=== PATIENT | male | born 1985 | race Two or more races ===

== ENCOUNTER 2020-05-07 00:11 | Emergency (ER) | payer SELFPAY ==
[~2020-05-07] VITALS: Ht 165.1 cm; Wt 61.2 kg
--- NOTE | 2020-05-07 00:15 | NUR ---
PT BIBRA FROM STREET PER RA, C/O ALCOHOL INTOXICATION. PT OPENS EYES TO PAINFUL STIMULI. VITAL SIGNS STABLE. RESPIRATIONS EVEN AND UNLABORED. NO ACUTE DISTRESS NOTED AT THIS TIME. PLACED ON MONITOR, WILL CONTINUE TO MONITOR
--- NOTE | 2020-05-07 00:15 | NUR ---
Note carmelone in EDM - 05/07/20 at 0213 by BEBE PT BIBRA FROM STREET C/O ABDOMINAL PAIN. 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 PT AWAKE, APPEARS INTOXICATED. VITAL SIGNS STABLE. RESPIRATIONS EVEN AND UNLABORED. NO ACUTE DISTRESS NOTED AT THIS TIME. PLACED ON MONITOR, WILL CONTINUE TO MONITOR
--- NOTE | 2020-05-07 00:55 | NUR ---
BRAND DEVELOPMENT MANAGER AT BEDSIDE FOR BLOOD DRAW
--- NOTE | 2020-05-07 01:00 | NUR ---
PT UNABLE TO PROVIDE URINE SAMPLE AT THIS TIME. MD GARY
--- NOTE | 2020-05-07 01:18 | NUR ---
PT BROUGHT BY RADIOLOGY TO CT
[2020-05-07 01:19] LABS: BASOPHILS % (AUTO) 0.5 % (0.0-2.0); EOSINOPHILS % (AUTO) 1.7 % (0.0-6.0); HEMATOCRIT 39 % (39-51); HEMOGLOBIN 13.1 g/dL (13.5-17.5); LYMPHOCYTES # (AUTO) 2.2 /CMM (0.8-4.8); LYMPHOCYTES % (AUTO) 33.1 % (20.0-44.0); MEAN CORPUSCULAR HGB CONC 34 g/dl (31.0-36.0); MEAN CORPUSCULAR VOLUME 88 fL (80-96); MONOCYTES # (AUTO) 0.6 /CMM (0.1-1.30); MONOCYTES % (AUTO) 8.4 % (2.0-12.0); NEUTROPHILS # (AUTO) 3.8 /CMM (1.8-8.9); NEUTROPHILS % (AUTO) 56.3 % (43.0-81.0); PLATELET COUNT (AUTO) 285 /CMM (150-450); RED BLOOD CELL COUNT(AUTO) 4.44 MIL/uL (4.5-6.0); WHITE BLOOD COUNT (AUTO) 6.7 K/uL (4.3-11.0)
--- NOTE | 2020-05-07 01:27 | NUR ---
PT RETURNED FROM CT
[2020-05-07 01:31] LABS: CALCIUM, SERUM 8.8 mg/dL (8.5-10.1); CARBON DIOXIDE 27 mmol/L (21-32); CHLORIDE 103 mmol/L (98-107); CREATININE 0.8 mg/dL (0.6-1.3); GLUCOSE 87 mg/dL (74-106); LIPASE 52 U/L (73-393); POTASSIUM 3.5 mmol/L (3.5-5.1); SODIUM SERUM 139 mmol/L (136-145); UREA NITROGEN, BLOOD 17 mg/dL (7-18)
[2020-05-07 01:32] LABS: ACETAMINOPHEN < 2 ug/ml (10-30)
[2020-05-07 01:38] LABS: ALANINE AMINOTRANSFERASE 21 U/L (12-78); ALBUMIN 3.8 g/dL (3.4-5.0); ALCOHOL, BLOOD < 3 mg/dL (0-0); ALKALINE PHOSPHATASE 96 U/L (46-116); ASPARTATE AMINOTRANSFERASE 20 U/L (15-37); BILIRUBIN,DIRECT 0.1 mg/dL (0.0-0.2); BILIRUBIN,TOTAL 0.4 mg/dL (0.2-1.0); TOTAL PROTEIN, SERUM 7.1 g/dL (6.4-8.2)
[2020-05-07] MEDS ORDERED: LIDOCAINE 2% JEL UROJET 10 ML MM ONE ×2 (02:05→02:30)
--- NOTE | 2020-05-07 02:10 | NUR ---
pt to ct.
[2020-05-07 03:29] LABS: BILIRUBIN,URINE NEGATIVE (NEGATIVE); COLOR,URINE YELLOW (YELLOW); LEUKOCYTE ESTERASE ,URINE NEGATIVE (NEGATIVE); NITRITE, URINE NEGATIVE (NEGATIVE); PROTEIN,URINE NEGATIVE (NEGATIVE); UGLUCOSE NEGATIVE (NEGATIVE); UROBILINOGEN,URINE 0.2 EU/dL (0.2)
--- NOTE | 2020-05-07 05:37 | NUR ---
pt appears to be more awake, denies si/hi. dr. jaimes aware
--- NOTE | 2020-05-07 08:55 | NUR ---
Patient given written and verbal discharge instructions. Patient verbalizes understanding of instructions. Patient is ambulatory with steady gait. Refuses offer of [facility] placement. Patient given list of available shelters in surrounding area.
[2020-05-07 08:56] VITALS: BP 120/74
--- NOTE | 2020-05-07 12:45 | NUR ---
Social Service Consult: SW consult requested by ER staff for a 34 year old non- male for homelessness. SW attempt to meet with the pt at 1130 am but the pt has been medically clear and discharge from the hospital. Plan: Acquisition Marketing Coordinator is available upon request if pt returns to the hospital.
== END 2020-05-07 08:58 | disposition home or self-care (01) ==
LOC: ER 00:14
DX: R41.0 Disorientation, unspecified (principal); F19.10 Other psychoactive substance abuse, uncomplicated; Z59.0 Homelessness
CPT/HCPCS: 36415; 70450; 72125; 74176; 80048; 80076; 80299; 80307 ×2; 80320; 81003; 83690; 85025; 99285; J3490; L0172; G0480